=== PATIENT | female | born 1990 | race Caucasian/White ===

== ENCOUNTER 2017-12-31 21:49 | Emergency (ER) | payer BC ==
[2017-12-31 21:56] VITALS: BP 130/83
--- NOTE | 2017-12-31 22:11 | EDM.PDOC ---
ED HPI GENERAL MEDICAL PROBLEM - General Chief Complaint: Lower Extremity Injury/Pain Stated Complaint: knee pain Time Seen by Provider: 12/31/17 21:52 Source of Information: Reports: Patient History Limitations: Reports: No Limitations - History of Present Illness INITIAL COMMENTS - FREE TEXT/NARRATIVE: This is a 27-year-old female. She had orthoscopic surgery on her left knee on November 29. On last Tuesday she was in a park and apparently stepped in a hole with her left foot and fell twisting her left knee if she went down. She noted increased pain in that left knee and increased swelling. She has been Jamshid wrapping it and being careful with it but it continues to get more painful and more swelling. She spoke to the placement specialist in [place] where she had this surgery done and he suggested that she needed to be seen. I explained to her that we do not do MRIs from the ER but once we make sure the bones are okay with an x-ray I'll refer her to a local placement specialist and they can do the MRI as an outpatient. Left Knee Pain Score (Numeric/FACES): 8 - Related Data Allergies Allergy/AdvReac Type Severity Reaction Status Date / Time cephalexin [Cephalexin] Allergy Hives Verified 02/10/16 16:09 naproxen Allergy Airway Verified 02/10/16 16:09 Tightness Home Meds: Home Meds Albuterol [Proventil HFA] 2 puff INH QID PRN #1 inhaler 04/21/15 [Rx] Escitalopram Oxalate [Lexapro] 10 mg PO DAILY 10/30/15 [History] Ibuprofen [IJD: Ibuprofen] 600 mg PO Q6H PRN #0 tablet 01/28/16 [Rx] Budesonide/Formoterol Fumarate [Symbicort 80-4.5 Mcg Inhaler] 2 puff INH BID [History] Past Medical History HEENT History: Reports: Impaired Vision Cardiovascular History: Reports: Hypertension Respiratory History: Reports: Asthma Gastrointestinal History: Reports: None Genitourinary History: Reports: STD, UTI, Recurrent, Other (See Below) Other Genitourinary History: genital herpes SURVEILLANCE OFFICER History: Reports: , Spontaneous Musculoskeletal History: Reports: None Neurological History: Reports: Migraines Psychiatric History: Reports: Anxiety, Depression - Infectious Disease History Infectious Disease History: Reports: Chicken Pox - Past Surgical History HEENT Surgical History: Reports: Naso-Sinus Surgery, Tonsillectomy Cardiovascular Surgical History: Reports: None GI Surgical History: Reports: Cholecystectomy Female Surgical History: Reports: Section Musculoskeletal Surgical History: Reports: Arthroscopic Procedure, Shoulder Surgery Social & Family History - Family History Family Medical History: Noncontributory - Tobacco Use Smoking Status *Q: Never Smoker - Caffeine Use Caffeine Use: Reports: Coffee, Soda, Tea - Recreational Drug Use Recreational Drug Use: No Review of Systems - Review of Systems Review Of Systems: See Below Constitutional: Denies: Chills, Fever Eyes: Reports: No Symptoms Ears: Reports: No Symptoms Nose: Reports: No Symptoms Mouth/Throat: Reports: No Symptoms Respiratory: Denies: Shortness of Breath, Cough Cardiovascular: Denies: Chest Pain GI/Abdominal: Reports: No Symptoms Genitourinary: Reports: No Symptoms Musculoskeletal: Reports: Other (As per history of present illness) Skin: Reports: No Symptoms Neurological: Reports: No Symptoms Psychiatric: Reports: No Symptoms ED EXAM, GENERAL - Physical Exam Exam: See Below Exam Limited By: No Limitations General Appearance: Alert, WD/WN, No Apparent Distress Eye Exam: Bilateral Eye: Normal Inspection Ears: Normal External Exam Nose: Normal Inspection Throat/Mouth: Normal Inspection Head: Normocephalic Neck: Supple Respiratory/Chest: No Respiratory Distress GI/Abdominal: Non-Tender Back Exam: Normal Inspection, Full Range of Motion Extremities: Other (Left knee suggest a mild effusion, there is no evidence of any incisional infection or redness, she has a negative anterior and negative posterior drawer sign, she is very tender on palpation of the medial joint line and stressing of the MCL, she doesn't have any tenderness in the lateral joint line or the lateral collateral ligament. No other acute findings in her extremities.) Neurological: Alert, Oriented Psychiatric: Normal Affect, Normal Mood Skin Exam: Warm, Dry Course - Vital Signs Last Recorded V/S: Last Vital Signs Temp 98.0 F 12/31/17 21:55 Pulse 86 12/31/17 21:55 Resp 20 12/31/17 21:55 BP 130/83 12/31/17 21:55 Pulse Ox 100 12/31/17 21:55 - Orders/Labs/Meds Orders: Active Orders 24 hr Category Date Time Status Communication Order [RC] STAT Care 12/31/17 22:39 Active Knee 3V Lt [CR] Stat Exams 12/31/17 22:07 Taken - Radiology Interpretation Free Text/Narrative:: Left knee x-ray does not show any acute bony abnormalities - Re-Assessments/Exams Free Text/Narrative Re-Assessment/Exam: 12/31/17 22:39 I spoke to the patient regarding the x-ray results. She is to continue to ice it down and to wrap it and will put her on crutches for total touching only an hour for her to the placement specialist Dr. De Leon. Departure - Departure Time of Disposition: 22:40 Disposition: Home, Self-Care 01 Condition: Good Clinical Impression: Left knee pain Qualifiers: Chronicity: acute Qualified Code(s): M25.562 - Pain in left knee Acute medial meniscal injury of left knee Qualifiers: Encounter type: initial encounter Qualified Code(s): S83.8X2A - Sprain of other specified parts of left knee, initial encounter - Discharge Information *PRESCRIPTION DRUG MONITORING PROGRAM REVIEWED*: Not Applicable *COPY OF PRESCRIPTION DRUG MONITORING REPORT IN PATIENT MADHU: Not Applicable Referrals: Mark De Leon MD [Physician] - Forms: ED Department Discharge Additional Instructions: Get the hydrocodone from the [facility] in the lobby, take the medication as needed for pain, continue to wrap the knee when you're up and about but take the wrap off at night time, use the crutches with toe touching until you follow up with Dr. De Leon, ice the left knee as needed for the soreness and pain, return to the ER if needed. - My Orders Last 24 Hours: My Active Orders 12/31/17 22:07 Knee 3V Lt [CR] Stat 12/31/17 22:39 Communication Order [RC] STAT - Assessment/Plan Last 24 Hours: My Active Orders 12/31/17 22:07 Knee 3V Lt [CR] Stat 12/31/17 22:39 Communication Order [RC] STAT
--- NOTE | 2018-01-02 10:02 | CR ---
Left knee: AP, lateral and sunrise patellar views of the left knee were obtained. Medial and lateral joint spaces are preserved. No joint effusion is seen. No fracture or other bony abnormality is seen. Impression: 1. No abnormality is appreciated on three-view left knee exam. Diagnostic code #1
== END 2017-12-31 23:01 | disposition home or self-care (01) ==
LOC: JD.ED 21:49
DX: S83.8X1A Sprain of other specified parts of right knee, initial encounter (principal); I10 Essential (primary) hypertension; F41.9 Anxiety disorder, unspecified; F32.9 Major depressive disorder, single episode, unspecified; Z88.1 Allergy status to other antibiotic agents; Z88.8 Allergy status to other drugs, medicaments and biological substances; Z79.899 Other long term (current) drug therapy; W18.42XA Slipping, tripping and stumbling without falling due to stepping into hole or opening, initial encounter
CPT/HCPCS: 73562-26-LT; 73562-LT; 99283